=== PATIENT | female | born 1995 | race African-American/Black ===

== ENCOUNTER 2017-07-17 08:26 | Emergency (ER) | payer SELFPAY ==
[~2017-07-17] VITALS: Ht 157.5 cm; Wt 64.0 kg
[2017-07-17 09:13] VITALS: BP 109/77
== END 2017-07-17 10:43 | disposition left against medical advice (07) ==
LOC: ER 10:27
DX: Z53.21 Procedure and treatment not carried out due to patient leaving prior to being seen by health care provider (principal)
CPT/HCPCS: 81025

== ENCOUNTER 2018-02-06 14:17 | Emergency (ER) | payer SELFPAY ==
[~2018-02-06] VITALS: Ht 157.5 cm; Wt 68.0 kg
[2018-02-06 15:16] LABS: CLARITY URINE CLOUDY (CLEAR); COLOR URINE YELLOW (YELLOW); KETONES URINE NEGATIVE (NEGATIVE); LEUKOCYTE ESTERASE URINE NEGATIVE (NEGATIVE); NITRITE URINE NEGATIVE (NEGATIVE); OCCULT BLOOD URINE NEGATIVE (NEGATIVE); PH URINE 8.5 (4.5-8.0); PROTEIN URINE NEGATIVE (NEGATIVE); SPECIFIC GRAVITY URINE 1.019 (1.005-1.030)
[2018-02-06 19:16] VITALS: BP 118/69
[2018-02-09 19:07] LABS: CHLAMYDIA TRACHOMATIS NAA Negative (Negative); NEISSERIA GONORRHOEAE NAA Negative (Negative)
== END 2018-02-06 19:19 | disposition home or self-care (01) ==
LOC: ER 15:39
DX: N76.0 Acute vaginitis (principal); Z98.890 Other specified postprocedural states
CPT/HCPCS: 81003; 81025; 87491; 87591; 99284; Z7610